=== PATIENT | male | born 1975 | race Caucasian/White ===

== ENCOUNTER 2020-06-26 14:04 | Emergency (ER) | payer BC, OTHER ==
[2020-06-26] MEDS ORDERED: Sodium Chloride 0.9% 10 ML Syringe FLUSH PRN (14:26)
[2020-06-26] MEDS ORDERED: Ondansetron 4 MG/2 ML SDV IVPUSH ONE (14:39)
[2020-06-26] MEDS ORDERED: Sodium Chloride 0.9% 1,000 ML IV STA (14:39)
[2020-06-26] MEDS ORDERED: Iopamidol 612 MG/ML 100 ML Bottle IVPUSH ONE (14:42)
--- NOTE | 2020-06-26 14:42 | EDM.PDOC ---
ED HPI GENERAL MEDICAL PROBLEM - General Chief Complaint: Abdominal Pain Stated Complaint: ABDOMINAL PAIN SENT BY CLINIC Time Seen by Provider: 06/26/20 14:14 Source of Information: Reports: Patient, RN Notes Reviewed History Limitations: Reports: No Limitations - History of Present Illness INITIAL COMMENTS - FREE TEXT/NARRATIVE: Patient is a 45-year-old male presenting to the emergency department after being sent here by the [facility]. He was seen there for a 2-day history of left lower quadrant abdominal pain which is worsening in severity. Blood work was completed there and showed a mildly elevated WBC. Patient states that he had to loose stools earlier in the day, but has had none since. He has had no fever, chills, nausea, or vomiting. Patient denies a history of diverticulitis. He has never had a colonoscopy. He had a Covid test completed the [place] [facility] which was found to be negative. Left Lower Abdomen Pain Score (Numeric/FACES): 7 - Related Data Allergies Allergy/AdvReac Type Severity Reaction Status Date / Time No Known Allergies Allergy Verified 06/26/20 14:13 Past Medical History - Past Surgical History Musculoskeletal Surgical History: Reports: Hip Replacement, Other (See Below) Other Musculoskeletal Surgeries/Procedures:: bilarteral Social & Family History - Tobacco Use Tobacco Use Status *Q: Never Tobacco User - Caffeine Use Caffeine Use: Reports: Soda - Recreational Drug Use Recreational Drug Use: No ED ROS GENERAL - Review of Systems Review Of Systems: See Below Constitutional: Reports: No Symptoms. Denies: Fever, Chills, Weakness HEENT: Reports: No Symptoms Respiratory: Reports: No Symptoms Cardiovascular: Reports: No Symptoms Endocrine: Reports: No Symptoms GI/Abdominal: Reports: Abdominal Pain, Diarrhea. Denies: Bloody Stool, Constipation, Nausea, Vomiting : Reports: No Symptoms Musculoskeletal: Reports: No Symptoms Skin: Reports: No Symptoms Neurological: Reports: No Symptoms Psychiatric: Reports: No Symptoms Hematologic/Lymphatic: Reports: No Symptoms Immunologic: Reports: No Symptoms ED EXAM, GI/ABD - Physical Exam Exam: See Below Exam Limited By: No Limitations General Appearance: Alert, WD/WN, No Apparent Distress Respiratory/Chest: No Respiratory Distress, Lungs Clear, Normal Breath Sounds, No Accessory Muscle Use, Chest Non-Tender Cardiovascular: Normal Peripheral Pulses, Regular Rate, Rhythm, No Edema, No Gallop, No JVD, No Murmur, No Rub GI/Abdominal Exam: Normal Bowel Sounds, Soft, No Organomegaly, No Distention, No Abnormal Bruit, No Mass, Pelvis Stable, Tender (LLQ) Neurological: Alert, Oriented, CN II-XII Intact, Normal Cognition, Normal Gait, Normal Reflexes, No Motor/Sensory Deficits Psychiatric: Normal Affect, Normal Mood Skin Exam: Warm, Dry, Intact, Normal Color, No Rash Course - Vital Signs Last Recorded V/S: Last Vital Signs Temp 97.8 F 06/26/20 14:13 Pulse 72 06/26/20 14:13 Resp 16 06/26/20 14:13 BP 151/100 H 06/26/20 14:13 Pulse Ox 97 06/26/20 14:13 - Orders/Labs/Meds Orders: Active Orders 24 hr Category Date Time Status Peripheral IV Care [RC] . DIRECTED Care 06/26/20 14:26 Active Sodium Chloride 0.9% [Normal Saline] 1,000 ml Med 06/26/20 14:39 Active IV NOW Sodium Chloride 0.9% [Saline Flush] Med 06/26/20 14:26 Active 10 ml FLUSH ASDIRECTED PRN Sodium Chloride 0.9% [Saline Flush] Med 06/26/20 14:45 Active 10 ml FLUSH BOLUS Peripheral IV Insertion Adult [OM.PC] Stat Oth 06/26/20 14:26 Ordered Medication Orders Sodium Chloride (Normal Saline) 1,000 mls @ 150 mls/hr IV NOW STA Stop: 06/26/20 21:18 Last Admin: 06/26/20 14:54 Dose: 150 mls/hr Documented by: JIMMY Sodium Chloride (Saline Flush) 10 ml FLUSH ASDIRECTED PRN PRN Reason: Keep Vein Open Sodium Chloride (Saline Flush) 10 ml FLUSH BOLUS ZABRINA Labs: Laboratory Tests 06/26/20 06/26/20 06/26/20 Range/Units 14:30 14:30 15:30 WBC 9.74 H (4.23-9.07) K/mm3 RBC 5.19 (4.63-6.08) M/mm3 Hgb 15.2 (13.7-17.5) gm/dl Hct 44.1 (40.1-51.0) % MCV 85.0 (79.0-92.2) fl MCH 29.3 (25.7-32.2) pg MCHC 34.5 (32.2-35.5) g/dl RDW Std Deviation 42.2 (35.1-43.9) fL Plt Count 283 (163-337) K/mm3 MPV 9.1 L (9.4-12.3) fl Neut % (Auto) 61.8 (34.0-67.9) % Lymph % (Auto) 29.1 (21.8-53.1) % [place] % (Auto) 6.1 (5.3-12.2) % Eos % (Auto) 2.4 (0.8-7.0) Baso % (Auto) 0.3 (0.1-1.2) % Neut # (Auto) 6.03 H (1.78-5.38) K/mm3 Lymph # (Auto) 2.83 (1.32-3.57) K/mm3 [place] # (Auto) 0.59 (0.30-0.82) K/mm3 Eos # (Auto) 0.23 (0.04-0.54) K/mm3 Baso # (Auto) 0.03 (0.01-0.08) K/mm3 Sodium 139 (136-145) mEq/L Potassium 4.0 (3.5-5.1) mEq/L Chloride 103 (98-107) mEq/L Carbon Dioxide 27 (21-32) mEq/L Anion Gap 13.0 (5-15) BUN 14 (7-18) mg/dL Creatinine 1.4 H (0.7-1.3) mg/dL Est Cr Clr Drug Dosing 80.08 mL/min Estimated GFR (MDRD) 54 (>60) mL/min BUN/Creatinine Ratio 10.0 L (14-18) Glucose 138 H (74-106) mg/dL Calcium 8.5 (8.5-10.1) mg/dL Total Bilirubin 0.7 (0.2-1.0) mg/dL AST 18 (15-37) U/L ALT 29 (16-63) U/L Alkaline Phosphatase 94 (46-116) U/L C-Reactive Protein 10.3 H* (<1.0) mg/dL Total Protein 6.9 (6.4-8.2) g/dl Albumin 3.6 (3.4-5.0) g/dl Globulin 3.3 gm/dL Albumin/Globulin Ratio 1.1 (1-2) Urine Color Yellow (Yellow) Urine Appearance Clear (Clear) Urine pH 6.0 (5.0-8.0) Ur Specific [place] 1.020 (1.005-1.030) Urine Protein Negative (Negative) Urine Glucose (UA) Negative (Negative) Urine Ketones Negative (Negative) Urine Occult Blood Negative (Negative) Urine Nitrite Negative (Negative) Urine Bilirubin Negative (Negative) Urine Urobilinogen 1.0 (0.2-1.0) Ur Leukocyte Esterase Negative (Negative) Urine RBC Not seen (0-5) /hpf Urine WBC 0-5 (0-5) /hpf Ur Epithelial Cells 0-5 (0-5) /hpf Urine Bacteria Few (FEW) /hpf Urine Mucus Rare (FEW) /hpf Meds: Medications Generic Name Dose Route Start Last Admin Trade Name Freq PRN Reason Stop Dose Admin Sodium Chloride 1,000 mls @ 150 mls/hr 06/26/20 14:39 06/26/20 14:54 Normal Saline IV 06/26/20 21:18 150 mls/hr NOW STA Administration Sodium Chloride 10 ml 06/26/20 14:26 Saline Flush FLUSH ASDIRECTED PRN Keep Vein Open Sodium Chloride 10 ml 06/26/20 14:45 Saline Flush FLUSH BOLUS ZABRINA Discontinued Medications Generic Name Dose Route Start Last Admin Trade Name Freq PRN Reason Stop Dose Admin Iopamidol 100 ml 06/26/20 14:42 Isovue-300 (61%) IVPUSH 06/26/20 14:43 ONETIME ONE Iopamidol 50 ml 06/26/20 15:11 Isovue-300 (61%) IVPUSH 06/26/20 15:12 ONETIME ONE Ondansetron HCl 4 mg 06/26/20 14:39 06/26/20 14:54 Zofran IVPUSH 06/26/20 14:40 4 mg ONETIME ONE Administration - Re-Assessments/Exams Free Text/Narrative Re-Assessment/Exam: Patient is a 45-year-old male presenting to the emergency department with a 2- day history of left lower quadrant abdominal pain. Exam findings are suspicious for diverticulitis. Have ordered CBC, CMP, CRP, urinalysis, and a CT scan of the abdomen pelvis with contrast. He denied the need for pain medications but states he does tend to get nauseous easily. We will start IV fluids of NS at 150 mils per hour as well as Zofran 4 mg IV. 06/26/20 16:21 Hematology was significant for WBC minimally elevated at 9.74, creatinine 1.4, CRP 10.3. Urinalysis was normal. CT scan of the abdomen pelvis showed findings compatible with mild diverticulitis near the junction of the descending and sigmoid regions. I will provide patient with an [email or web address] prescription for Levaquin and Flagyl. Discussed return precautions. Discharge instructions as documented. 06/26/20 16:23 Departure - Departure Time of Disposition: 16:21 Disposition: Home, Self-Care 01 Preliminary Cause of *Q: Sepsis & Multi System Organ Failure Clinical Impression: Diverticulitis - Discharge Information *PRESCRIPTION DRUG MONITORING PROGRAM REVIEWED*: No *COPY OF PRESCRIPTION DRUG MONITORING REPORT IN PATIENT MEAGHAN: No Instructions: Diverticulitis Referrals: PCP,Not In Area [Primary Care Provider] - Forms: ED Department Discharge Additional Instructions: You were seen in the emergency department today for left lower quadrant abdominal pain for the past 2 days. Work-up included blood work, urinalysis, and a CT scan of your abdomen pelvis. Results of your work-up were consistent with a diagnosis of diverticulitis. You have been provided a prescription for Levaquin and Flagyl. Take these medications as prescribed. If you should experience worsening symptoms or fail to improve over the next few days, meaghan mmend return to the emergency department for reevaluation. You may use Tylenol or ibuprofen as needed for discomfort. Please note that the prescription for Flagyl you received contains 30 tablets, however, only 21 is required to complete the course your prescription. He will have 9 tablets remaining at the end of your therapy. Sepsis Event Note (ED) - Evaluation Sepsis Screening Result: No Definite Risk - Focused Exam Vital Signs: Vital Signs Temp Pulse Resp BP Pulse Ox 06/26/20 14:13 97.8 F 72 16 151/100 H 97 - My Orders Last 24 Hours: My Active Orders 06/26/20 14:26 Peripheral IV Care [RC] . DIRECTED Sodium Chloride 0.9% [Saline Flush] 10 ml FLUSH ASDIRECTED PRN Peripheral IV Insertion Adult [OM.PC] Stat 12/24/20 14:39 Sodium Chloride 0.9% [Normal Saline] 1,000 ml IV NOW 06/26/20 14:45 Sodium Chloride 0.9% [Saline Flush] 10 ml FLUSH BOLUS - Assessment/Plan Last 24 Hours: My Active Orders 06/26/20 14:26 Peripheral IV Care [RC] . DIRECTED Sodium Chloride 0.9% [Saline Flush] 10 ml FLUSH ASDIRECTED PRN Peripheral IV Insertion Adult [OM.PC] Stat 06/26/20 14:39 Sodium Chloride 0.9% [Normal Saline] 1,000 ml IV NOW 06/26/20 14:45 Sodium Chloride 0.9% [Saline Flush] 10 ml FLUSH BOLUS
[2020-06-26] MEDS ORDERED: Sodium Chloride 0.9% 10 ML Syringe FLUSH SCH (14:45)
[2020-06-26] MEDS ORDERED: Iopamidol 612 MG/ML 50 ML SDV IVPUSH ONE (15:11)
--- NOTE | 2020-06-26 16:14 | CT ---
CT abdomen and pelvis Technique: Multiple axial sections were obtained from above the dome of the diaphragm inferiorly through the pubic symphysis. Intravenous and oral contrast was utilized. Delayed images were also obtained through the abdomen and pelvis. Reconstructed coronal and sagittal images were obtained. Findings: Inflammatory change is identified within the sigmoid colon near the junction to the descending colon. There is an area of bowel wall thickening in this area. Diverticuli are also noted within the sigmoid colon. Inflammatory change is compatible with mild diverticulitis. Visualized lung bases show nothing acute. Diffuse fatty infiltration is seen within the liver. Gallbladder contains no calcified gallstones. Spleen appears within normal limits. Adrenal glands show no nodule. Pancreas shows no abnormality. Aorta shows no aneurysm. No retroperitoneal adenopathy or mesenteric abnormalities are seen. Appendix is seen which is normal. No pelvic mass or adenopathy is noted. Both kidneys show symmetric contrast enhancement. There is a small cyst being noted within the right kidney measuring about 2.1 cm. Delayed images show contrast within the ureters and within the bladder. Bone window settings were reviewed which show mild degenerative change scattered throughout the spine. Bilateral hip prostheses are seen which causes artifact within the pelvis. Impression: 1. Findings compatible with mild diverticulitis near the junction of the descending and sigmoid regions. 2. Other nonacute findings as described above. Diagnostic code #3
== END 2020-06-26 16:40 | disposition home or self-care (01) ==
LOC: JD.ED 14:04
DX: K57.32 Diverticulitis of large intestine without perforation or abscess without bleeding (principal)
CPT/HCPCS: 36415; 74177; 80053; 81001; 85025; 86140; 96374; 99284; J2405; J7030